=== PATIENT | male | born 1975 | race Caucasian/White ===

== ENCOUNTER 2021-05-27 22:29 | Emergency (ER) | payer OTHER ==
[~2021-05-27] VITALS: Ht 185.4 cm; Wt 122.5 kg
[2021-05-27 22:31] VITALS: BP 173/91
[2021-05-27] MEDS ORDERED: DESYREL150 MG PO (22:38)
[2021-05-27] MEDS ORDERED: METFORMIN HCL500 M3 PO (22:38)
[2021-05-27] MEDS ORDERED: AUGMENTIN 875-1 EACH PO (23:10)
== END 2021-05-27 23:30 | disposition home or self-care (01) ==
LOC: ER 22:29
DX: H72.92 Unspecified perforation of tympanic membrane, left ear (principal); H92.02 Otalgia, left ear; E11.9 Type 2 diabetes mellitus without complications; Z79.899 Other long term (current) drug therapy; Z79.84 Long term (current) use of oral hypoglycemic drugs